=== PATIENT | male | born 1955 | race Caucasian/White ===

== ENCOUNTER → 2016-04-15 | Outpatient (CLI) | payer BC, MEDICARE ==
[~2016-04-15] MED LIST: ALLERGY10 M1 PO; PRAVACHOL20 MG PO; TENORMIN25 MG PO; ZYLOPRIM100 MG PO
== END | disposition short-term general hospital (02) ==
LOC: CLPAIN 07:53
DX: G89.4 Chronic pain syndrome (principal); M51.16 Intervertebral disc disorders with radiculopathy, lumbar region; M48.06 Spinal stenosis, lumbar region; Z79.891 Long term (current) use of opiate analgesic

== ENCOUNTER → 2016-05-12 | Outpatient (CLI) | payer BC, MEDICARE | END | disposition short-term general hospital (02) | LOC: CLVASC 09:50 | DX: I83.90 Asymptomatic varicose veins of unspecified lower extremity (principal); G62.9 Polyneuropathy, unspecified ==